=== PATIENT | male | born 1965 | race Caucasian/White ===

== ENCOUNTER → 2019-03-20 | Day surgery (SDC) | payer OTHER ==
[~2019-03-20] MED LIST: ASPIR 8181 MG PO; BUPIVACAINE HCL 0.5% INJ 30 ML VIAL INJ ONE; CEFAZOLIN SOD 1 GM/NS 50ML 50 ML IV ONE; DEXAMETHASONE SOD PHOS INJ 4 MG/ML VIAL ONE; FENTANYL CITRATE/PF 100MCG/2 ML INJ ONE; FISH OIL 1,0001 EAC2 PO; KETOROLAC TROMETHAMINE 30 MG/ML VIAL ONE; LIDOCAINE HCL 2% LOCAL INJ 5 ML SDV VIAL INJ ONE; MIDAZOLAM HCL 2 MG/2 ML VIAL ONE; ONDANSETRON HCL INJ 2MG/ML 2ML 2 MG/ML VIAL ONE; PROPOFOL IV EMULSION 10 MG/ML 20 ML VIAL ONE; SEVOFLURANE INHAL SOLN 250 ML PEN BTL ONE; VITAMIN C100 MG PEG; VITAMIN D400 UNIT PO; fiber PO
--- OUTSIDE RECORDS SUMMARY | 2019-03-20 05:21 | XMS REPORT ---
Author Author [facility] Address Unknown Phone Unavailable Care Team Providers Care Headrig Sawyer Name Role Phone DR BRANDON MATTHEWS Unavailable Unavailable Problems This patient has no known problems. Allergies, Adverse Reactions, Alerts This patient has no known allergies or adverse reactions. Medications This patient has no known medications. Encounters Start Date/Time End Date/Time Encounter Type Admission Type Attending Clinicians Care Facility Care Department Encounter ID 2019-01-16 06:00:00 Inpatient [facility] [id number]
[2019-03-20 08:10] VITALS: BP 112/80
--- NOTE | 2019-03-20 10:33 | Operative Report ---
DATE OF PROCEDURE: 03/20/2019 SURGEON Estrellita Irwin DPM [employer]UCER SURGEON: Paco Trejo DPM PREOPERATIVE DIAGNOSIS: Left tailor's bunion. POSTOPERATIVE DIAGNOSIS: Left tailor's bunion. PLANNED PROCEDURE: Left tailor's bunionectomy. SURGEON: Margy Irwin DPM ([place]) BLUEPRINT REPRODUCER: Paco Trejo DPM ANESTHESIA: General with a postoperative block consisting of 10 mL of 0.5% Marcaine plain, mixed 1 mL of dexamethasone phosphate. HEMOSTASIS: Pneumatic thigh tourniquet set at 350 mmHg for a total time of approximately 20 minutes. MATERIALS: 3-0 Vicryl, 4-0 Prolene. ESTIMATED BLOOD LOSS: Less than 10 mL. PATHOLOGY: None. PROCEDURE NOTE: The patient was seen in the preoperative waiting room, where a correct procedure and site was identified. The patient was brought to the operating room, placed on the operating table in supine position. General anesthesia was initiated. At this time, a well-padded pneumatic tourniquet was placed about the patient's left thigh. The left foot ankle leg was then scrubbed, prepped, and draped in the usual aseptic manner. The left foot ankle leg was then exsanguinated with an Esmarch bandage and the pneumatic thigh tourniquet was inflated to 350 mmHg for a total time approximately 20 minutes. Attention was directed to the lateral aspect of the patient's left foot, where a 3 cm curvilinear incision made directly over the 5th metatarsophalangeal joint. Incision was carried through subcutaneous tissue it from deeper underling structures. All vital neurovascular structures were identified and retracted medially and laterally and all bleeders were cauterized or ligated as deemed necessary. Attention was then directed to the 5th metatarsophalangeal joint, where an inverted L capsulotomy was performed to allow for good visualization of the 5th metatarsal head. Utilizing a sagittal saw, the lateral eminence was resected and passed off to the back table utilizing a rotary bur. The 5th metatarsal head was smoothed with anatomic alignment and the plantar condyle was resected. The wound was then copiously irrigated with sterile saline. Capsule and deep tissue reapproximated with 3-0 Vicryl, subcutaneous tissue with 3-0 Vicryl, and the skin was closed using a running interlocking stitch with 4-0 Prolene. The incision site was dressed with Adaptic, 4x4s, Kerlix, Gadiel wrap, and a postop shoe. The patient tolerated the procedure and anesthesia well. The patient was transferred to the postoperative recovery with vital signs stable and vascular status intact. The patient was monitored there for a short period of time before being sent home with the following written and oral instructions: 1. Keep the dressing clean, dry, and intact. 2. The patient is to remain partial weightbearing in a postoperative shoe to avoid excess ambulation until being seen in the office. 3. The patient was given office number to contact us if any problems arise. Dictated by Paco Trejo DPM S SAMM Nixon ([place])/MODL /[id number] [id number]
== END | disposition home or self-care (01) ==
LOC: OR 05:00
PROVIDERS: ATTEND Podiatrist Foot & Ankle Surgery
DX: M21.622 Bunionette of left foot (principal); Z01.810 Encounter for preprocedural cardiovascular examination; Z79.82 Long term (current) use of aspirin
CPT/HCPCS: 28110; 93005; J0690; J1100; J1885; J2001; J2250; J2405; J2704; J3010

== ENCOUNTER → 2022-07-12 | Outpatient (CLI) | payer OTHER ==
[~2022-07-12] MED LIST changes: -BUPIVACAINE HCL 0.5% INJ 30 ML VIAL INJ ONE; -CEFAZOLIN SOD 1 GM/NS 50ML 50 ML IV ONE; -DEXAMETHASONE SOD PHOS INJ 4 MG/ML VIAL ONE; -FENTANYL CITRATE/PF 100MCG/2 ML INJ ONE; -KETOROLAC TROMETHAMINE 30 MG/ML VIAL ONE; -LIDOCAINE HCL 2% LOCAL INJ 5 ML SDV VIAL INJ ONE; -MIDAZOLAM HCL 2 MG/2 ML VIAL ONE; -ONDANSETRON HCL INJ 2MG/ML 2ML 2 MG/ML VIAL ONE; -PROPOFOL IV EMULSION 10 MG/ML 20 ML VIAL ONE; -SEVOFLURANE INHAL SOLN 250 ML PEN BTL ONE
[2022-07-12 10:50] LABS: ALBUMIN 3.8 g/dL (3.5-5.0); BILIRUBIN,DIRECT 0.2 mg/dL (0.0-0.5)
== END ==
LOC: LAB 10:15
PROVIDERS: ATTEND Podiatrist Foot & Ankle Surgery
DX: B35.1 Tinea unguium (principal)
CPT/HCPCS: 36415; 80076